=== PATIENT | female | born 1955 | race Caucasian/White ===

== ENCOUNTER 2017-02-04 09:57 | Outpatient (CLI) | payer OTHER ==
--- NOTE | 2017-02-04 10:50 | DIAGNOSTIC IMAGING REPORT ---
PROCEDURE: DEXA BONE DENSITY STUDY CLINICAL INDICATION: OSTEOPOROSIS COMPARISON: DEXA 02/03/2016 FINDINGS: Forearm: Bone mineral density 0.605 g/cm2, T score -1.4 osteopenia which represents a 2.6% decrease from the previous study LEFT HIP: Bone mineral density 0.765 g/cm2, T score -1.5 osteopenia which represents a 12% improvement from the previous study LEFT FEMORAL NECK: Bone mineral density 0.576 g/cm2, T score -2.5 osteoporosis which represents a 2% decrease from the previous study FRACTURE RISK CALCULATION ( when applicable): 10-year fracture risk of a major osteoporotic fracture and of a hip fracture not reported because some T-score at or below -2.5 and a prior hip or vertebral fracture. (T score greater or equal to -1.0 to: NORMAL) (T score from -1.1 to -2.4: OSTEOPENIA) (T score ess than or equal to -2.5: OSTEOPOROSIS) IMPRESSION: 1. Osteoporosis femoral neck. 2. Osteopenia forearm and hip.
--- NOTE | 2017-02-04 12:49 | DIAGNOSTIC IMAGING REPORT ---
PROCEDURE: MG BILATERAL SCREENING W/CAD INDICATION: SCREENING. Sister with a history of breast cancer. TECHNIQUE: Bilateral CC and MLO digital views. COMPARISON: Bilateral mammogram 02/03/2016, left mammogram 07/26/2012 and bilateral mammogram 07/19/2012. FINDINGS: Computer-aided detection applied. Minimally dense. No significant interval change. IMPRESSION: 1. Negative mammogram RESULT CODE: 1- Negative. A. A negative report should not delay biopsy if a dominant or clinically suspicious mass is present. 10-15% of cancers are not identified by x-ray. B. A negative report may reinforce clinical impression. C. Adenosis and dense breasts may obscure an underlying neoplasm. D. False positive reports average 6-10%. E.. A yearly screening mammogram is recommended. A reminder letter will be scheduled.
== END 2017-02-04 23:00 ==
LOC: MAM SRH 09:57
DX: M81.8 Other osteoporosis without current pathological fracture (principal); M85.829 Other specified disorders of bone density and structure, unspecified upper arm; M85.88 Other specified disorders of bone density and structure, other site; Z12.31 Encounter for screening mammogram for malignant neoplasm of breast; Z80.3 Family history of malignant neoplasm of breast